=== PATIENT | male | born 1990 | race Caucasian/White ===

== ENCOUNTER 2018-11-02 06:34 | Emergency (ER) | payer OTHER ==
[~2018-11-02] VITALS: Ht 172.7 cm; Wt 61.4 kg
[2018-11-02 06:34] VITALS: BP 144/79
[2018-11-02] MEDS ORDERED: IBUPROFEN 800 MG TAB PO ONE (07:15)
[2018-11-02 07:44] LABS: INFLUENZA A AMPLIFICATION NEGATIVE (NEGATIVE); INFLUENZA B AMPLIFICATION NEGATIVE (NEGATIVE)
[2018-11-02] MEDS ORDERED: MAGICMW SSP (07:57)
[2018-11-02] MEDS ORDERED: AMOX500C PO (07:57)
== END 2018-11-02 08:04 | disposition home or self-care (01) ==
LOC: M ED 07:21
DX: J02.9 Acute pharyngitis, unspecified (principal)

== ENCOUNTER 2019-02-24 17:00 | Emergency (ER) | payer OTHER ==
[~2019-02-24] VITALS: Ht 172.7 cm; Wt 59.1 kg
[~2019-02-24 17:00] MED LIST: AMOX500C PO; MAGICMW SSP
[2019-02-24] MEDS ORDERED: APAP325T4 PO (17:12)
[2019-02-24] MEDS ORDERED: PSEUDOEPHEDRINE 30 MG TAB PO STA (20:30)
[2019-02-24] MEDS ORDERED: GI COCKTAIL 50ML BTL(HYOSCYAMINE/MAALOX/LIDOCAINE VISCOUS)(1:3:1) PO ONE (20:30)
[2019-02-24] MEDS ORDERED: IBUPROFEN 600 MG TAB PO ONE (20:30)
[2019-02-24] MEDS ORDERED: PSEU1TAB3 PO (20:33)
[2019-02-24] MEDS ORDERED: MAGICMW SSP (20:33)
[2019-02-24] MEDS ORDERED: FLON1SPR NARES (20:33)
[2019-02-24 20:45] VITALS: BP 138/81
== END 2019-02-24 20:53 | disposition home or self-care (01) ==
LOC: M ED 17:00
DX: J06.9 Acute upper respiratory infection, unspecified (principal); B34.9 Viral infection, unspecified; F17.210 Nicotine dependence, cigarettes, uncomplicated

== ENCOUNTER 2019-06-20 16:47 | Emergency (ER) | payer OTHER ==
[~2019-06-20] VITALS: Ht 175.3 cm; Wt 63.3 kg
[~2019-06-20 16:47] MED LIST changes: +APAP325T4 PO; +FLON1SPR NARES; +PSEU1TAB3 PO
[2019-06-20] MEDS ORDERED: claritin (16:55)
--- NOTE | 2019-06-20 17:44 | REP ---
Four views right wrist: 06/20/2019. Indication: Right wrist pain following injury. Comparison: None. Findings: There is no acute fracture, subluxation or dislocation. No lytic or blastic lesions are present within the visualized bones. Impression: No acute right wrist osseous injury. Electronically Signed by Jayjay Schmitz DO 06/20/2019 05:36 P
--- NOTE | 2019-06-20 18:58 | REP ---
Four views right hand: 06/20/2019. Indication: Right hand pain following injury. Comparison: None. Findings: There is no acute fracture, subluxation or dislocation. No lytic or blastic lesions are present within the visualized bones. Impression: No acute osseous injury of the right hand. Electronically Signed by Jayjay Schmitz DO 06/20/2019 06:50 P
[2019-06-20 19:22] VITALS: BP 146/87
== END 2019-06-20 19:40 | disposition home or self-care (01) ==
LOC: M ED 16:47
DX: S60.221A Contusion of right hand, initial encounter (principal); S63.501A Unspecified sprain of right wrist, initial encounter; W22.8XXA Striking against or struck by other objects, initial encounter; Y92.9 Unspecified place or not applicable; Y93.9 Activity, unspecified; Z79.899 Other long term (current) drug therapy

== ENCOUNTER 2019-09-27 05:35 | Emergency (ER) | payer OTHER ==
[~2019-09-27] VITALS: Ht 172.7 cm; Wt 62.5 kg
[2019-09-27 05:35] VITALS: BP 144/82
[~2019-09-27 05:35] MED LIST changes: +claritin
[2019-09-27] MEDS ORDERED: INDO50CA91 PO (06:19)
--- NOTE | 2019-09-27 07:02 | REP ---
Clinical: Pain with history of prior trauma Technique: AP, lateral, bilateral oblique views right wrist . Findings: The carpal bones, surrounding osseous structures, soft tissues, and joint spaces are normal. There is no evidence for acute fracture or dislocation. No subcutaneous emphysema or radiodense foreign body. Impression: Normal wrist series. No acute fracture or dislocation Electronically Signed by Brock Lilly MD 09/27/2019 06:54 A
== END 2019-09-27 06:57 | disposition home or self-care (01) ==
LOC: M ED 05:35
DX: S63.501A Unspecified sprain of right wrist, initial encounter (principal); Y92.9 Unspecified place or not applicable; Y93.9 Activity, unspecified; Y99.9 Unspecified external cause status; X58.XXXA Exposure to other specified factors, initial encounter